=== PATIENT | female | born 2000 | race Two or more races ===

== ENCOUNTER 2022-05-24 13:48 | Emergency (ER) | payer OTHER ==
[2022-05-24 14:06] VITALS: TEMP 98.7; BMI 23.3
[2022-05-24] MEDS ORDERED: METOCLOPRAMIDE HCL INJECTION 10 MG/2 ML VIAL IM ONE (15:47)
[2022-05-24] MEDS ORDERED: ACETAMINOPHEN 325 MG TABLET (FP) PO ONE (15:48)
[2022-05-24] MEDS ORDERED: ACETAMINOPHEN 325 MG TABLET (FP) ONE (16:08)
[2022-05-24] MEDS ORDERED: METOCLOPRAMIDE HCL 10 MG TABLET (FP) PO ONE (16:08)
[2022-05-24 16:25] LABS: URINE APPEARANCE CLEAR; URINE BILIRUBIN NEGATIVE (NEGATIVE); URINE COLOR YELLOW; URINE GLUCOSE (UA) NEGATIVE (NEGATIVE); URINE KETONE NEGATIVE (NEGATIVE); URINE LEUK ESTERASE NEGATIVE (NEGATIVE); URINE NITRITE NEGATIVE (NEGATIVE); URINE PROTEIN NEGATIVE (NEGATIVE); URINE UROBILINOGEN 0.2 mg/dL (0.2-1.0)
[2022-05-24 18:15] LABS: BASO % 0.5 % (0-2.0); EOS % 1.6 % (0-4.5); HEMATOCRIT 37.3 % (32.4-45.2); HEMOGLOBIN 12.9 GM/dL (10.7-15.3); MCH 33.4 pg (25.7-33.7); MCHC 34.6 g/dl (32.0-36.0); MEAN CELL VOLUME 96.4 fl (80-96); MEAN PLT VOLUME 9.6 fl (7.5-11.1); MONO % 4.7 % (3.8-10.2); NEUT % 50.2 % (42.8-82.8); PLATELET COUNT 244 10^3/uL (134-434); RBC 3.87 M/mm3 (3.60-5.2); RDW 13.1 % (11.6-15.6); WHITE BLOOD COUNT 7.7 K/mm3 (4.0-10.0)
[2022-05-24 18:37] LABS: CALCIUM 9.7 mg/dL (8.5-10.1)
[2022-05-24 18:38] LABS: ALBUMIN 4.1 g/dl (3.4-5.0)
[2022-05-24 18:41] LABS: CREATININE 0.8 mg/dL (0.55-1.3)
[2022-05-24 18:43] LABS: BILIRUBIN,TOTAL 0.3 mg/dL (0.2-1); TOT PROT 7.6 g/dl (6.4-8.2)
[2022-05-24 21:22] VITALS: BP 118/72; PULSE 76; RESP 18
== END 2022-05-24 21:22 | disposition home or self-care (01) ==
LOC: JERFT 13:48
PROC: 3E033GC Introduction of Other Therapeutic Substance into Peripheral Vein, Percutaneous Approach (ICD-10-PCS; principal; 2022-05-24)
DX: R10.31 Right lower quadrant pain (principal)
CPT/HCPCS: 36415; 74177-TC; 76775-TC; 76830-TC; 80053; 81003; 84703; 85025; 87077; 87086; 87491; 87591; 87661; 99285-25; Q9967

== ENCOUNTER 2022-10-31 10:49 | Emergency (ER) | payer OTHER ==
[2022-10-31 11:07] VITALS: TEMP 97.6; BMI 27.0
[2022-10-31] MEDS ORDERED: IBUPROFEN 600 MG TABLET (FP) PO ONE ×2 (12:20→12:22)
[2022-10-31 12:57] LABS: EPI CELLS 5 /uL (0-25.1); HCG,QUALITATIVE URINE Borderline hCG level; HYALINE CASTS 0 /uL (0-3.1); URINE APPEARANCE CLEAR; URINE BACTERIA 19 /uL (0-1359); URINE BILIRUBIN NEGATIVE (NEGATIVE); URINE COLOR YELLOW; URINE GLUCOSE (UA) NEGATIVE (NEGATIVE); URINE KETONE NEGATIVE (NEGATIVE); URINE LEUK ESTERASE NEGATIVE (NEGATIVE); URINE NITRITE NEGATIVE (NEGATIVE); URINE PROTEIN NEGATIVE (NEGATIVE); URINE RBC 396 /uL (0-23.9); URINE UROBILINOGEN 0.2 mg/dL (0.2-1.0); URINE WBC 7 /uL (0-25.8)
[2022-10-31 12:59] LABS: BASO % 0.3 % (0-2.0); EOS % 0.4 % (0-4.5); HEMATOCRIT 37.2 % (32.4-45.2); HEMOGLOBIN 12.6 GM/dL (10.7-15.3); LYMPH % 39.2 % (8-40); MCH 32.2 pg (25.7-33.7); MCHC 33.8 g/dl (32.0-36.0); MEAN CELL VOLUME 95.3 fl (80-96); MEAN PLT VOLUME 9.6 fl (7.5-11.1); MONO % 6.6 % (3.8-10.2); NEUT % 53.5 % (42.8-82.8); PLATELET COUNT 245 10^3/uL (134-434); RBC 3.91 M/mm3 (3.60-5.2); RDW 13.1 % (11.6-15.6); WHITE BLOOD COUNT 6.5 K/mm3 (4.0-10.0)
[2022-10-31 13:15] LABS: CALCIUM 9.5 mg/dL (8.5-10.1)
[2022-10-31 13:19] LABS: CREATININE 0.7 mg/dL (0.55-1.3)
[2022-10-31 19:05] VITALS: BP 121/74; PULSE 86; RESP 18
== END 2022-10-31 19:21 | disposition home or self-care (01) ==
LOC: JER 10:49
DX: O03.9 Complete or unspecified spontaneous abortion without complication (principal)
CPT/HCPCS: 36415; 76817-TC; 80048; 81003; 84702; 84703; 85025; 86900; 87077; 87086; 87491; 87591; 99284-25

== ENCOUNTER 2022-11-03 11:56 | Emergency (ER) | payer OTHER ==
[2022-11-03 12:06] VITALS: BP 99/62; PULSE 83; RESP 18; TEMP 98; BMI 26.5
== END 2022-11-03 13:18 | disposition home or self-care (01) ==
LOC: JERFT 11:56
DX: O03.9 Complete or unspecified spontaneous abortion without complication (principal); Z3A.00 Weeks of gestation of pregnancy not specified
CPT/HCPCS: 36415; 84702; 99283-25

== ENCOUNTER 2023-06-04 15:38 | Emergency (ER) | payer OTHER ==
[2023-06-04 16:32] VITALS: BP 111/66; PULSE 93; RESP 17; TEMP 98.4; BMI 23.0
[2023-06-04] MEDS ORDERED: CEPHALEXIN MONOHYDRATE 500 MG CAPSULE (UD) ONE (19:16)
[2023-06-04] MEDS: CEPHALEXIN MONOHYDRATE 500 MG CAPSULE (UD) PO ONE (19:26)
[2023-06-04 19:27] LABS: EPI CELLS >36 /uL (0-25.1); HYALINE CASTS 0 /uL (0-3.1); URINE APPEARANCE CLEAR; URINE BACTERIA 107 /uL (0-1359); URINE BILIRUBIN NEGATIVE (NEGATIVE); URINE COLOR YELLOW; URINE GLUCOSE (UA) NEGATIVE (NEGATIVE); URINE KETONE NEGATIVE (NEGATIVE); URINE LEUK ESTERASE 2+ (NEGATIVE); URINE NITRITE NEGATIVE (NEGATIVE); URINE PROTEIN NEGATIVE (NEGATIVE); URINE RBC 7 /uL (0-23.9); URINE UROBILINOGEN 0.2 mg/dL (0.2-1.0); URINE WBC 45 /uL (0-25.8)
== END 2023-06-04 19:29 | disposition home or self-care (01) ==
LOC: JER 15:38
DX: R10.9 Unspecified abdominal pain (principal); R30.0 Dysuria; N30.00 Acute cystitis without hematuria
CPT/HCPCS: 81003; 84703; 87086; 99283-25

== ENCOUNTER 2024-11-17 18:52 | Emergency (ER) | payer OTHER ==
[2024-11-17 19:06] VITALS: TEMP 97.8; BMI 25.0
[2024-11-17 19:50] LABS: HCG,QUALITATIVE URINE Negative
[2024-11-17 20:12] LABS: URINE APPEARANCE CLEAR; URINE BILIRUBIN NEGATIVE (NEGATIVE); URINE COLOR YELLOW; URINE GLUCOSE (UA) NEGATIVE (NEGATIVE); URINE KETONE NEGATIVE (NEGATIVE); URINE LEUK ESTERASE NEGATIVE (NEGATIVE); URINE NITRITE NEGATIVE (NEGATIVE); URINE PROTEIN NEGATIVE (NEGATIVE); URINE UROBILINOGEN 1.0 mg/dL (0.2-1.0)
[2024-11-17 23:04] VITALS: BP 110/64; PULSE 68; RESP 16
== END 2024-11-17 23:05 | disposition home or self-care (01) ==
LOC: JER 18:52
DX: N83.201 Unspecified ovarian cyst, right side (principal); N83.202 Unspecified ovarian cyst, left side; R10.2 Pelvic and perineal pain
CPT/HCPCS: 36415; 76830-TC; 81003; 84703; 87070; 87086; 87205; 87491; 87591; 87661; 99284-25